=== PATIENT | female | born 1940 | race American Indian/Alaskan Native ===

== ENCOUNTER 2020-09-06 11:11 | Emergency (ER) | payer MEDICARE, MEDICAID ==
[2020-09-06 11:26] VITALS: BP 144/77; PULSE 95
[2020-09-06] MEDS ORDERED: Acetaminophen 325 MG Tab PO ONE (11:33)
[2020-09-06] MEDS ORDERED: Orphenadrine 100 MG Tab.ER PO ONE (11:33)
--- NOTE | 2020-09-06 11:39 | EDM.PDOC ---
ED HPI GENERAL MEDICAL PROBLEM - General Chief Complaint: Head Injury Stated Complaint: [facility] Time Seen by Provider: 09/06/20 11:26 Source of Information: Reports: Patient, RN Notes Reviewed History Limitations: Reports: No Limitations - History of Present Illness INITIAL COMMENTS - FREE TEXT/NARRATIVE: Patient is a 80-year-old female who presents to the ER via [facility] ambulance service for the evaluation of a head injury. Patient states that she walks with a wheeled walker, and she was sitting on the seat of the wheeled walker, and her grand daughter was pushing her, when the wheels hit a lip in the cement, they caught on the cement, and the walker went backwards. The patient fell backwards and struck the back side of her head on the sidewalk. Patient states she has not had any loss of consciousness, she did not blackout, she has no lacerations, area slightly tender but not horribly painful. She is complaining of may be some pain between her shoulder blades, but states that she may have struck her upper back on the back of the walker as well as it fell. She states this only somewhat bothersome, if she tries to move a little bit. Yassine hardy did not give her anything for pain management prior to coming to the ER. Notes that she has a prior back injury and a hip injury that she still recovering from. But this does not seem to be any more painful as well. Patient denies any other sick-like symptoms, fever/chills, cough/shortness of breath, nausea/vomiting/diarrhea. Head Pain Score (Numeric/FACES): 8 - Related Data Allergies Allergy/AdvReac Type Severity Reaction Status Date / Time aspirin AdvReac Severe Stomach Verified 09/06/20 11:26 Upset Home Meds: Home Meds Multivitamin [One Daily Multivitamin] 1 tab PO DAILY 05/07/14 [History] Amino Acids/Protein Hydrolys [Proteinex-18] 15 ml PO DAILY 11/09/17 [History] Cholestyramine/Aspartame [Cholestyramine Light Powder] 1 dose PO BID 11/09/17 [History] Dorzolamide HCl/Pf [Dorzolamide 2% Eye Drop] 1 drop EYEBOTH BID 11/09/17 [History] Ferrous Sulfate 325 mg PO BID 11/09/17 [History] Omeprazole 20 mg PO DAILY 11/09/17 [History] Oxybutynin Chloride 5 mg PO DAILY 11/09/17 [History] atorvaSTATin Calcium [Atorvastatin Calcium] 10 mg PO DAILY 11/09/17 [History] timoloL maleate [Timoptic 0.5% Ophth Soln] 1 drop EYEBOTH BID 11/09/17 [History] Orphenadrine [Norflex] 100 mg PO BID PRN #20 tab 09/06/20 [Rx] Past Medical History HEENT History: Reports: Cataract, Glaucoma Other HEENT History: wears glasses, top and bottom denture Cardiovascular History: Reports: High Cholesterol Respiratory History: Reports: None Gastrointestinal History: Reports: Colon Polyp, Other (See Below) Other Gastrointestinal History: bowel obstruction, hx gastric ulcer Genitourinary History: Reports: Renal Calculus [employer] History: Reports: Musculoskeletal History: Reports: Back Pain, Chronic, Fracture, RA, Other (See Below) Other Musculoskeletal History: Hip Pain Neurological History: Reports: CVA Other Neuro History: CVA in 2006 Psychiatric History: Reports: None Endocrine/Metabolic History: Reports: None Hematologic History: Reports: Anemia, Blood Transfusion(s) Immunologic History: Reports: None Oncologic (Cancer) History: Reports: Colon, Lymphoma Dermatologic History: Reports: None - Infectious Disease History Infectious Disease History: Reports: Chicken Pox, Measles, Mumps - Past Surgical History GI Surgical History: Reports: Appendectomy, Cholecystectomy, Colon, Colonoscopy, Colostomy, Hernia, Abdominal Other GI Surgeries/Procedures: 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 ED EXAM, HEAD INJURY - Physical Exam Exam: See Below Exam Limited By: No Limitations General Appearance: Alert, WD/WN, No Apparent Distress Head: Atraumatic, Scalp Swelling (very small amount of swelling to her occiput;pt does have a bony outgrowth in the area as well) Nexus Criteria: No: Posterior, Midline Cervical Tenderness, Evidence of Intoxication, Altered Level of Consciousness, Focal Neurological Deficit, Painful Distraction Injuries Eyes: Bilateral Eye: EOMI, Normal Inspection, PERRL Ears: Normal External Exam, Normal Canal, Hearing Grossly Normal, Normal TMs Neck: Non-Tender, Full Range of Motion, Normal Alignment, Normal Inspection Respiratory: No Respiratory Distress, Lungs Clear, Normal Breath Sounds, No Accessory Muscle Use, Chest Non-Tender Cardiovascular: Normal Peripheral Pulses, Regular Rate, Rhythm, No Edema Extremities: Normal Inspection, Normal Range of Motion, Normal Capillary Refill Neurologic: No Motor/Sensory Deficits, Alert, Normal Mood/Affect, Oriented x 3 Skin: Normal Color, Warm/Dry - [place] Coma Score Best Eye Response ([place]): (4) Open Spontaneously Best Verbal Response ([place]): (5) Oriented Best Motor Response ([place]): (6) Obeys Commands [place] Total: 15 Course - Vital Signs Last Recorded V/S: Last Vital Signs Temp 97.4 F 09/06/20 11:25 Pulse 95 09/06/20 11:25 Resp 16 09/06/20 11:25 BP 144/77 H 09/06/20 11:25 Pulse Ox 97 09/06/20 11:25 - Orders/Labs/Meds Meds: Medications Discontinued Medications Generic Name Dose Route Start Last Admin Trade Name Benny PRN Reason Stop Dose Admin Acetaminophen 650 mg 09/06/20 11:33 09/06/20 11:38 Acetaminophen 325 Mg Tab PO 09/06/20 11:34 650 mg NOW ONE Administration Orphenadrine Citrate 100 mg 09/06/20 11:33 09/06/20 11:38 Orphenadrine 100 Mg Tab.Er PO 09/06/20 11:34 100 mg ONETIME ONE Administration - Re-Assessments/Exams Free Text/Narrative Re-Assessment/Exam: 09/06/20 11:39 Patient presents to the ED for head injury, due to the patient's age and nature of the injury we will go ahead and get a head CT just to rule out any sort of trauma or head bleeds for today's purposes however neurological exam turns out well. Patient was requesting some Tylenol for her pain, I do believe she could have strained some muscles as she went down so we will also try some Norflex for muscle spasm relief. 09/06/20 12:[address] demonstrated no focal intracranial abnormalities. No skull fracture was seen. I did go over the results with the patient and daughter in the room, and they state that she is having some increasing right hip pain and again note that she has been having issues with that, and they were requesting imaging of her hip. We will go ahead and get a right hip and pelvis x-ray for further investigation. Departure - Departure Time of Disposition: 13:21 Disposition: Home, Self-Care 01 Condition: Good Clinical Impression: Fall from chair, initial encounter - Discharge Information *PRESCRIPTION DRUG MONITORING PROGRAM REVIEWED*: No *COPY OF PRESCRIPTION DRUG MONITORING REPORT IN PATIENT IVONNE: No Prescriptions: Orphenadrine [Norflex] 100 mg PO BID PRN #20 tab PRN Reason: Spasms Instructions: Fall Prevention in the Home, Adult, [id number], Facial or Scalp Contusion, [id number] Forms: ED Department Discharge Additional Instructions: You have been evaluated in the ED for your fall from the level of your wheeled walker. Your hip x-ray demonstrated no acute fracture or other worrisome abnormalities. Your head CT demonstrated no acute fracture or bleeds within your head. You have been provided with a disc of your images for today's purposes, for you to take to your primary care provider for their review. Please use ice as tolerated to the affected area. Please try to elevate the affected area to relieve swelling. You may take Tylenol 500 mg or ibuprofen 600mg q6 hrs for pain relief. Please do so until you have a tolerable level of pain with activity. Do not exceed 4000mg Tylenol or 3200mg ibuprofen in a 24 hour time period. Please expect you may be stiff and sore for the next few days, you have been provided with a prescription for muscle relaxer, you may take 1 tablet 2 times a day as needed for ongoing muscle soreness/stiffness. This medication was electronically sent to the [facility] located in the [facility]; address is [address] [place] [address], which is north of the [facility] in [place], on the way to [facility]. Please return to ED if your symptoms should change or worsen. Sepsis Event Note (ED) - Evaluation Sepsis Screening Result: No Definite Risk - Focused Exam Vital Signs: Vital Signs Temp Pulse Resp BP Pulse Ox 09/06/20 11:25 97.4 F 95 16 144/77 H 97
--- NOTE | 2020-09-06 12:19 | CT ---
Head CT Technique: Multiple axial sections through the brain were obtained. Intravenous contrast was not utilized. Reconstructed coronal and sagittal images were obtained. Findings: Ventricles along with basal cisterns and sulci over the convexities are within normal limits for the patient's age. Small extra-axial calcification is seen within the upper left anterior parietal region which is believed to be incidental. No abnormal parenchymal densities are seen. No evidence of intracranial hemorrhage is seen. No midline shift or mass-effect is seen. Slight basal ganglia calcification is noted. Bone window settings were reviewed which show no acute calvarial abnormality. Visualized mastoid sinuses appear within normal limits. Slight mucosal thickening is seen within the ethmoid sinuses which is likely chronic. Vascular calcification is noted within the carotid siphon. Impression: 1. Findings as noted above which are believed to be incidental. 2. No acute intracranial abnormality is appreciated. No skull fracture is seen. Diagnostic code #2
--- NOTE | 2020-09-06 13:12 | CR ---
Pelvis and right hip: AP view of the pelvis was obtained as well as AP and frog-leg lateral views of the right hip. Comparison: No previous pelvis or hip exam is available. Widening is seen of the right sacroiliac joint. There is sclerosis around this area and is most likely is old. There is an old fracture within the right iliac wing being seen with sclerosis which is also felt to be old. There is deformity seen around the pubic symphysis which is also felt to represent old fractures. Joint space within the right hip and left hip are maintained. Ostomy is noted within the left lower quadrant. Surgical clips are seen as well as vascular calcification and diffuse osteopenia. Impression: 1. Findings as described above believed to represent old trauma. 2. Ostomy as well as surgical clips and vascular calcification. 3. No acute abnormality is definitely appreciated. Diagnostic code #2
== END 2020-09-06 13:47 | disposition home or self-care (01) ==
LOC: JD.ED 11:11
DX: S09.90XA Unspecified injury of head, initial encounter (principal); E78.00 Pure hypercholesterolemia, unspecified; D64.9 Anemia, unspecified; Z88.8 Allergy status to other drugs, medicaments and biological substances; Z79.899 Other long term (current) drug therapy; W07.XXXA Fall from chair, initial encounter; Y93.01 Activity, walking, marching and hiking
CPT/HCPCS: 70450; 73502; 99284; A9270; 99283